=== PATIENT | female | born 1995 | race Caucasian/White ===

== ENCOUNTER 2025-03-11 18:11 | Inpatient (IN) | payer OTHER ==
[2025-03-11 19:40] LABS: Fetal Membranes Rupture RUPTURE DETECTED (No Rupture)
[2025-03-11] MEDS ORDERED: Ibuprofen 800 MG TAB PO PRN (19:44)
[2025-03-11] MEDS ORDERED: hydrALAZINE 20 MG/ML VIAL SLOW IVP PRN (19:44)
[2025-03-11] MEDS ORDERED: Carboprost 250 MCG/ML AMP IM PRN (19:44)
[2025-03-11] MEDS ORDERED: Lidocaine 1% (PF) 30 ML VIAL SC PRN (19:44)
[2025-03-11] MEDS ORDERED: Ondansetron PF 4 MG/2 ML Vial IVP PRN (19:44)
[2025-03-11] MEDS ORDERED: Tranexamic Acid 1,000 MG/10 ML VIAL IVP PRN (19:44)
[2025-03-11] MEDS ORDERED: Methylergonovine 0.2 MG/ML VIAL IM PRN (19:44)
[2025-03-11] MEDS ORDERED: Diphenoxylate HCl/Atropine Tablet PO PRN ×2 (19:44)
[2025-03-11] MEDS ORDERED: Oxytocin 30 units/NS 500 ML 500 ML IV SCH (19:45)
[2025-03-11 19:47] VITALS: BMI 28.7
[2025-03-11 20:58] LABS: Hematocrit 37.2 % (34.9-44.5); Hemoglobin 12.3 g/dL (12.0-15.5); Mean Corpuscular Hemoglobin 29.8 pg (27.0-33.0); Mean Corpuscular Volume 90.1 fL (81.6-98.3); Platelet Count 213 10x3/uL (150-450); Red Blood Cell (RBC) Count 4.13 10x6/uL (3.90-5.03); White Blood Cell (WBC) Count 8.80 10x3/uL (3.5-10.5)
[2025-03-11 22:44] LABS: Syphilis Antibody Index 0.03 S/CO (<1.00 Non-Reactive)
[2025-03-11 22:45] LABS: Hep B Surf Ag - L&D Non-Reactive S/CO (NonReactive)
[2025-03-11 22:50] LABS: HIV (1/2) Antibody/Antigen Non-Reactive (NonReactive); HIV 1/2 INDEX 0.05 S/CO (<1.00)
[2025-03-12] MEDS: Penicillin G Potassium 5 MILL.UNITS in Sodium Chloride 0.9% 100 ML IVPB SCH (01:02)
[2025-03-12] MEDS: fentaNYL/Ropivacaine Epidural 100 ML ONE (02:24)
[2025-03-12] MEDS ORDERED: diphenhydrAMINE 50 MG/ML VIAL IVP PRN (02:40)
[2025-03-12] MEDS ORDERED: Ondansetron PF 4 MG/2 ML Vial IVP PRN ×2 (02:40→14:19)
[2025-03-12] MEDS ORDERED: Acetaminophen 325 MG TAB PO PRN (02:40)
[2025-03-12] MEDS ORDERED: Communication Order-Pharmacy FS SCH (02:45)
[2025-03-12] MEDS ORDERED: fentaNYL 2 mcg/Ropivacaine 0.2% Epidural 100 ML CADD EPIDURAL SCH (02:45)
[2025-03-12] MEDS: Penicillin G 2.5 MILL.units 2.5 MILL.UNITS in Premix 1 BAG IVPB SCH (04:56)
[2025-03-12] MEDS: Oxytocin 30 units/NS 500 ML 500 ML IV SCH (04:57)
[2025-03-12] MEDS ORDERED: Benzocaine-Menthol 82.5 ML CAN TOP PRN (14:19)
[2025-03-12] MEDS ORDERED: Bisacodyl 10 MG SUPP PR PRN (14:19)
[2025-03-12] MEDS ORDERED: Preparation H Ointment 28 GM TUBE PR PRN (14:19)
[2025-03-12] MEDS ORDERED: diphenhydrAMINE 25 MG CAP PO PRN (14:19)
[2025-03-12] MEDS ORDERED: HYDROcodone/Acetaminophen 5/325 mg Tablet PO PRN ×2 (14:19)
[2025-03-12] MEDS ORDERED: Milk Of Magnesia 30 ML UDCUP PO PRN (14:19)
[2025-03-12] MEDS ORDERED: Lanolin Ointment 7 GM TUBE TOP PRN (14:19)
[2025-03-12] MEDS ORDERED: hydrALAZINE 20 MG/ML VIAL SLOW IVP PRN (14:19)
[2025-03-12] MEDS: Penicillin G Potassium 5 MILL.UNITS VIAL ONE (14:44)
[2025-03-12] MEDS: Ferrous Sulfate 325 MG TAB PO SCH (17:10)
[2025-03-12] MEDS: Ibuprofen 800 MG TAB PO SCH (20:53)
[2025-03-13] MEDS ORDERED: Bupivacaine/Epinephrine 0.25% 30 ML VIAL ONE (08:00)
[2025-03-13 08:01] VITALS: TEMP 97.7
[2025-03-13] MEDS: Acetaminophen 500 MG TAB PO PRN (10:28)
[2025-03-13 11:55] VITALS: BP 120/73
== END 2025-03-13 13:55 | disposition home or self-care (01) | DRG 807 ==
LOC: CSHERS 18:11 → CSHLD 19:55 → CSHPP 03-12 14:17
PROVIDERS: ADMIT Student in an Organized Health Care Education/Training Program; ATTEND Student in an Organized Health Care Education/Training Program
PROC: 4A1HXCZ Monitoring of Products of Conception, Cardiac Rate, External Approach (ICD-10-PCS; 2025-03-11)
PROC: 3E03329 Introduction of Other Anti-infective into Peripheral Vein, Percutaneous Approach (ICD-10-PCS; 2025-03-11)
PROC: 10E0XZZ Delivery of Products of Conception, External Approach (ICD-10-PCS; principal; 2025-03-13)
PROC: 10H07YZ Insertion of Other Device into Products of Conception, Via Natural or Artificial Opening (ICD-10-PCS; 2025-03-13)
PROC: 3E033VJ Introduction of Other Hormone into Peripheral Vein, Percutaneous Approach (ICD-10-PCS; 2025-03-13)
DX: O42.02 Full-term premature rupture of membranes, onset of labor within 24 hours of rupture (principal); Z37.0 Single live birth; O99.824 Streptococcus B carrier state complicating childbirth; O76 Abnormality in fetal heart rate and rhythm complicating labor and delivery; Z3A.37 37 weeks gestation of pregnancy; Z79.899 Other long term (current) drug therapy; O69.81X0 Labor and delivery complicated by cord around neck, without compression, not applicable or unspecified
CPT/HCPCS: 36415; 51702; 84112; 85027; 86780; 86850; 86900; 86901; 87340; 87389; 99285; J2540; J2590